=== PATIENT | female | born 1990 | race Caucasian/White ===

== ENCOUNTER 2018-08-09 18:30 | Emergency (ER) | payer BC, OTHER ==
[~2018-08-09] VITALS: Ht 165.1 cm; Wt 90.0 kg
[2018-08-09] MEDS ORDERED: KETOROLAC 60MG/2ML VIAL IM ONE (21:00)
[2018-08-09 23:12] VITALS: BP 124/78
== END 2018-08-09 23:12 | disposition home or self-care (01) ==
LOC: ER 18:58
DX: S42.002A Fracture of unspecified part of left clavicle, initial encounter for closed fracture (principal); R51 Headache; V49.49XA Driver injured in collision with other motor vehicles in traffic accident, initial encounter; Y93.89 Activity, other specified; Y92.89 Other specified places as the place of occurrence of the external cause; Y99.8 Other external cause status
CPT/HCPCS: 71045; 81025; 96372; 99283; J1885; Z7610